=== PATIENT | female | born 1945 | race Caucasian/White ===

== ENCOUNTER → 2020-05-17 | Outpatient (CLI) | payer MEDICARE, OTHER ==
[~2020-05-17] MED LIST: ACETAMINOPHEN-1 EACH PO; ATIVAN0.5 MG PO; BUSPIRONE HCL5 MG PO; COMPAZINE10 MG PO; DILTIAZEM 12HR120 MG PO; FLUCONAZOLE150 MG PO; LISINOPRIL2.5 MG PO; MEGACE 400400 MG/10 PO; PROTONIX40 MG PO; VITAMIN D21250 MCG PO
== END ==
LOC: KOH-I 13:06
DX: R06.02 Shortness of breath (principal); R91.8 Other nonspecific abnormal finding of lung field
CPT/HCPCS: 71046

== ENCOUNTER 2020-05-23 10:22 | Emergency (ER) | payer MEDICARE, OTHER ==
[2020-05-23 13:02] LABS: HEMOGLOBIN 14.5 gm/dl (12.3-15.3); RED BLOOD COUNT 5.1 M/UL (4.00-5.10); WHITE BLOOD COUNT 14.4 K/UL (4.5-11.0)
[2020-05-23 13:27] LABS: BUN/CREATININE RATIO 12 (0-10)
[2020-06-19] MEDS ORDERED: VITAMIN D21250 MCG PO (10:27)
[2020-06-19] MEDS ORDERED: COMPAZINE10 MG PO (10:28)
[2020-06-19] MEDS ORDERED: ACETAMINOPHEN-1 EACH PO (10:29)
[2020-06-19] MEDS ORDERED: ATIVAN0.5 MG PO (10:30)
[2020-06-19] MEDS ORDERED: MEGACE 400400 MG/10 PO (10:30)
[2020-06-19] MEDS ORDERED: FLUCONAZOLE150 MG PO (10:31)
[2020-06-19] MEDS ORDERED: BUSPIRONE HCL5 MG PO (10:31)
[2020-06-19] MEDS ORDERED: DILTIAZEM 12HR120 MG PO (10:32)
[2020-06-19] MEDS ORDERED: PROTONIX40 MG PO (10:32)
[2020-06-19] MEDS ORDERED: LISINOPRIL2.5 MG PO (10:32)
== END 2020-05-23 16:35 | disposition home or self-care (01) ==
LOC: ER1 10:22
PROVIDERS: Emergency Medicine
DX: C34.91 Malignant neoplasm of unspecified part of right bronchus or lung (principal); I10 Essential (primary) hypertension; E11.9 Type 2 diabetes mellitus without complications; Z88.0 Allergy status to penicillin; Z88.1 Allergy status to other antibiotic agents
CPT/HCPCS: 71250; 80053; 85025; 85610; 85730; 93005; 99285

== ENCOUNTER → 2020-05-31 | Outpatient (CLI) | payer MEDICARE, OTHER | LOC: US 09:20 | DX: R63.4 Abnormal weight loss (principal); R91.8 Other nonspecific abnormal finding of lung field; J90 Pleural effusion, not elsewhere classified | CPT/HCPCS: 76604 ==

== ENCOUNTER → 2020-06-14 | Outpatient (CLI) | payer MEDICARE, OTHER | LOC: KOH-I 11:01 | DX: R53.82 Chronic fatigue, unspecified (principal); R63.4 Abnormal weight loss; R91.8 Other nonspecific abnormal finding of lung field; M89.8X8 Other specified disorders of bone, other site | CPT/HCPCS: 73502 ==

== ENCOUNTER → 2020-06-19 | Day surgery (SDC) | payer MEDICARE, OTHER | END | disposition home or self-care (01) | LOC: OR 07:30 | DX: C34.11 Malignant neoplasm of upper lobe, right bronchus or lung (principal); J90 Pleural effusion, not elsewhere classified; I10 Essential (primary) hypertension; F41.9 Anxiety disorder, unspecified; F32.9 Major depressive disorder, single episode, unspecified; Z86.73 Personal history of transient ischemic attack (TIA), and cerebral infarction without residual deficits; Z88.0 Allergy status to penicillin; Z88.1 Allergy status to other antibiotic agents; Z79.899 Other long term (current) drug therapy | CPT/HCPCS: 76000; 88341; 88342; J2704; J3010; J7120 ==